=== PATIENT | female | born 1960 | race Caucasian/White ===

== ENCOUNTER 2017-09-11 15:04 | Emergency (ER) | payer OTHER ==
--- NOTE | 2017-09-11 15:29 | ED Physician Documentation ---
PD HPI CHEST PAIN - Stated complaint Stated Complaint: CP - Chief complaint Chief Complaint: Cardiac - History obtained from History obtained from: Patient - History of Present Illness Timing - onset: Yesterday (This is a 57-year-old woman with history of atrial fibrillation which has been controlled and she has not been in A. fib that we know of since September 2015 because she is maintained on Cardizem. For the last 2 weeks she has fleeting episodic feeling like her heart is burping it is a fleeting sensation and goes away after presyncope after about 10 or 15 seconds and then is left with a dull chest pressure. The last time she had that was yesterday but now the chest pressure is constant since yesterday radiating down the left arm with some breathlessness but no pedal edema, nausea, or sweats. She has no heart disease other than the history of atrial fibrillation.) Review of Systems Ten Systems: 10 systems reviewed and negative Constitutional: denies: Fever, Chills, Fatigue Cardiac: reports: Chest pain / pressure, Palpitations. denies: Pedal edema, Calf pain Respiratory: reports: Dyspnea. denies: Hemoptysis, Wheezing PD PAST MEDICAL HISTORY - Past Medical History Cardiovascular: Angina Respiratory: Asthma Endocrine/Autoimmune: None GI: None APPLICATIONS PROJECT MANAGER: None Psych: None Musculoskeletal: Osteoarthritis - Past Surgical History Past Surgical History: Yes /APPLICATIONS PROJECT MANAGER: Hysterectomy Cardiovascular: Cardiac catheterization - Present Medications Home Medications: Ambulatory Orders Medication Instructions Recorded Confirmed Multivitamin [Multivitamins] 1 each PO DAILY 09/28/14 10/10/15 Albuterol Sulfate [Ventolin Hfa] 2 puffs IH Q4HR PRN 10/10/15 10/10/15 Aspirin 2 tab PO BID 10/10/15 10/10/15 Cetirizine [ZyrTEC] 1 tab PO DAILY 10/10/15 10/10/15 Diltiazem HCl [Cardizem] 120 mg PO DAILY PRN 10/10/15 10/10/15 Biotin 09/11/17 - Allergies Allergies/Adverse Reactions: Allergies Allergy/AdvReac Type Severity Reaction Status Date / Time codeine Allergy Unknown Verified 10/10/15 03:27 theophylline Allergy Unknown Verified 09/11/17 15:16 - Social History Does the pt smoke?: No Smoking Status: Never smoker Does the pt drink ETOH?: Yes Does the pt have substance abuse?: No - Immunizations Immunizations are current?: Yes Immunizations: TDAP current <10years - POLST Patient has POLST: No PD ED PE NORMAL - Vitals Vital signs reviewed: Yes - General General: Alert and oriented X 3, No acute distress - HEENT HEENT: PERRL, EOMI - Neck Neck: Supple, no meningeal sign, No bony TTP - Cardiac Cardiac: RRR, No murmur - Respiratory Respiratory: No respiratory distress, Clear bilaterally - Abdomen Abdomen: Non tender - Extremities Extremities: No edema, No calf tenderness / cord - Neuro Neuro: Alert and oriented X 3, Normal speech Results - Vitals Vitals: Vital Signs - 24 hr 09/11/17 15:12 Temperature 36.7 C Heart Rate 88 Respiratory 20 Rate Blood Pressure 157/96 H O2 Saturation 98 Oxygen O2 Source Room air - EKG (time done) 1513 Rate: Rate (enter#) (85) Rhythm: NSR QRS: Low voltage (due to body habitus?) Ischemia: Normal ST segments Computer interpretation: Agree with computer - Labs Labs: Laboratory Tests 09/11/17 09/11/17 09/11/17 15:25 15:25 15:25 WBC 9.2 RBC 4.81 Hgb 14.2 Hct 43.1 MCV 89.7 MCH 29.4 MCHC 32.8 RDW 14.3 Plt Count 302 MPV 9.1 Neut # (Auto) Not Reportable Lymph # (Auto) Not Reportable [place] # (Auto) Not Reportable Eos # (Auto) Not Reportable Baso # (Auto) Not Reportable Absolute Nucleated RBC Not Reportable Total Counted 100 Band Neuts % (Manual) 0 Abnorm Lymph % (Manual) 0 Nucleated RBC % Not Reportable Neutrophils # (Manual) 5.0 Lymphocytes # (Manual) 2.4 Monocytes # (Manual) 0.7 Eosinophils # (Manual) 1.0 H Basophils # (Manual) 0.1 Differential Comment MANUAL DIFFERENTIAL Manual Slide Review Indicated WBC Morphology NORMAL APPEARANCE Platelet Estimate NORMAL (130-450,000) Platelet Morphology NORMAL APPEARANCE RBC Morph Micro Appear NORMAL APPEARANCE Sodium 136 Potassium 3.8 Chloride 101 Carbon Dioxide 28 Anion Gap 7.0 BUN 18 Creatinine 0.8 Estimated GFR (MDRD) 74 L Glucose 109 H Calcium 9.2 Total Bilirubin 0.7 AST 22 ALT 18 Alkaline Phosphatase 91 Troponin I < 0.04 Total Protein 7.7 Albumin 3.6 Globulin 4.1 Albumin/Globulin Ratio 0.9 L Lipase 34 - Rads (name of study) 2v chest Radiology: EMP read contemporaneously (Normal) PD MEDICAL DECISION MAKING - ED course ED course: 57-year-old woman with history of atrial fibrillation on Cardizem presents with new occasional palpitations associated with brief presyncope and now longer- lasting chest pressure that is dull. Her EKG is nonischemic and single troponin which should be predictive given the time course is negative. She plans to follow-up with her physician and they are scheduling her for a stress echo, which is appropriate. - Sepsis Event Vital Signs: Vital Signs - 24 hr 09/11/17 15:12 Temperature 36.7 C Heart Rate 88 Respiratory 20 Rate Blood Pressure 157/96 H O2 Saturation 98 Oxygen O2 Source Room air Departure - Departure Disposition: 01 Home, Self Care Clinical Impression: Chest pain Qualifiers: Chest pain type: unspecified Qualified Code(s): R07.9 - Chest pain, unspecified Condition: Good Record reviewed to determine appropriate education?: Yes Instructions: ED Chest Pain Atypical Unkn Cause Comments: Your blood pressure was elevated today on check into the emergency department. This does not mean that you have hypertension, it is a common phenomenon to come to the emergency department and have elevated blood pressure. I recommend that you see your primary care physician within the week to have it rechecked when you are feeling better.
[2017-09-11 15:49] LABS: BASOPHILS % (AUTO) 1.3 %; EOSINOPHILS % (AUTO) 14.8 %; HGB - HEMOGLOBIN 14.2 g/dL (12.0-16.0); LYMPHOCYTES % (AUTO) 25.7 %; MEAN CORPUSCULAR HEMOGLOBIN 29.4 pg (27.0-31.0); MEAN CORPUSCULAR HGB CONC 32.8 g/dL (32.0-36.0); MEAN CORPUSCULAR VOLUME 89.7 fL (81.0-99.0); MEAN PLATELET VOLUME 9.1 fL (7.9-10.8); MONOCYTES % (AUTO) 7.5 %; NEUTROPHILS % (AUTO) 50.7 %; PLT - PLATELET COUNT 302 10^3/uL (130-450); RED BLOOD COUNT 4.81 10^6/uL (4.20-5.40); RED CELL DISTRIBUTION WIDTH 14.3 % (12.0-15.0); WHITE BLOOD COUNT 9.2 x10^3/uL (4.8-10.8)
[2017-09-11 15:52] LABS: ABNORMAL LYMPHS % (MANUAL) 0 %; BAND NEUTROPHILS % (MANUAL) 0 %
[2017-09-11 15:55] LABS: ALBUMIN 3.6 g/dL (3.2-5.5); ALBUMIN/GLOBULIN RATIO 0.9 (1.0-2.2); BILIRUBIN,TOTAL 0.7 mg/dL (0.2-1.0); CALCIUM 9.2 mg/dL (8.5-10.3); CREATININE 0.8 mg/dL (0.4-1.0); TOTAL PROTEIN 7.7 g/dL (6.7-8.2)
[2017-09-11 16:07] LABS: BASOPHILS # (MANUAL) 0.1 10^3/uL (0-0.1); BASOPHILS % (MANUAL) 1 %; DIFFERENTIAL COMMENT MANUAL DIFFERENTIAL; LYMPHOCYTES # (MANUAL) 2.4 10^3/uL (1.5-3.5); LYMPHOCYTES % (MANUAL) 26 %; MONOCYTES # (MANUAL) 0.7 10^3/uL (0.0-1.0); NEUTROPHILS % (MANUAL) 54 %; PLATELET ESTIMATE, MANUAL NORMAL (130-450,000) (NORMAL); PLATELET MORPHOLOGY NORMAL APPEARANCE (NORMAL); RBC MORPHOLOGY (MULTIPLE) NORMAL APPEARANCE (NORMAL)
--- NOTE | 2017-09-11 16:09 | XRAY Report ---
Procedure Date: 09/11/2017 Accession Number: [id number] / [id number] Procedure: XR - Chest 2 View X-Ray CPT Code: 43356 FULL RESULT: EXAM: CHEST RADIOGRAPHY EXAM DATE: 09/11/2017 03:55 PM. CLINICAL HISTORY: Chest pain. COMPARISON: 08/04/2015. TECHNIQUE: 2 views. FINDINGS: Lungs/Pleura: No focal opacities evident. No pleural effusion. No pneumothorax. Normal volumes. Mediastinum: Heart and mediastinal contours are unremarkable. Other: None. IMPRESSION: No acute cardiopulmonary abnormality. RADIA
[2017-09-11 16:44] VITALS: BP 130/77
== END 2017-09-11 16:44 | disposition home or self-care (01) ==
LOC: ED 15:04
DX: R07.9 Chest pain, unspecified (principal); R03.0 Elevated blood-pressure reading, without diagnosis of hypertension; I48.91 Unspecified atrial fibrillation; J45.909 Unspecified asthma, uncomplicated; M19.90 Unspecified osteoarthritis, unspecified site
CPT/HCPCS: 36415; 71046; 80053; 83690; 84484; 85025; 93005; 99283; 99284

== ENCOUNTER 2018-08-10 17:06 | Outpatient (CLI) | payer OTHER ==
--- NOTE | 2018-08-11 12:11 | Ultrasound Report ---
Reason: HYDRONEPHROSIS,UNSPECIFIED Procedure Date: 08/10/2018 Accession Number: [id number] / [id number] Procedure: US - Retroperitoneal CPT Code: FULL RESULT: EXAM: RENAL ULTRASOUND EXAM DATE: 08/10/2018 05:54 PM. CLINICAL HISTORY: Hydronephrosis, unspecified. COMPARISON: ABDOMEN/PELVIS W/O 08/08/2014 1:16 PM. TECHNIQUE: Real-time scanning was performed with static images obtained. FINDINGS: Right Kidney: 13 x 5.6 x 5.4 cm. No stones, janet hydronephrosis or contour deforming mass. Moderate pelviectasis with the right renal pelvis measuring 0.8 cm. Left Kidney: 12.6 x 5.5 x 6.4 cm. No hydronephrosis or contour deforming renal mass. 0.8 cm echogenic inferior left renal nonobstructing stone. Mild left renal pelviectasis with the pelvis measuring 1.1 cm. Bladder: Bilateral jets seen. The prevoid bladder volume was 637.6 cc. The postvoid bladder volume was 4.3 cc. Other: Study limited by body habitus. IMPRESSION: 1. No renal mass or hydronephrosis. Mild bilateral pelviectasis measuring 0.8 cm on the right and 1.1 cm on the left. 2. 0.8 cm nonobstructing inferior left renal stone. No right renal stones. 3. Normal bladder. 4. Study limited by body habitus. RADIA
== END 2018-08-10 17:07 | disposition home or self-care (01) ==
LOC: DI 17:06
PROVIDERS: ATTEND Urology
DX: N20.0 Calculus of kidney (principal); N28.89 Other specified disorders of kidney and ureter
CPT/HCPCS: 76770

== ENCOUNTER 2018-11-21 09:28 | Outpatient (CLI) | payer OTHER ==
--- NOTE | 2018-11-22 08:40 | Ultrasound Report ---
Reason: URETERAL DILATATION Procedure Date: 11/21/2018 Accession Number: [id number] / [id number] Procedure: US - Retroperitoneal CPT Code: FULL RESULT: EXAM: RENAL ULTRASOUND EXAM DATE: 11/21/2018 10:29 AM. CLINICAL HISTORY: Ureteral dilatation. COMPARISON: RETROPERITONEAL 08/10/2018 5:19 PM. TECHNIQUE: Real-time scanning was performed with static images obtained. FINDINGS: Right Kidney: 12 5 x 7.3 x 5.3 cm. Normal cortical echotexture. Nonobstructing 8 mm stone lower pole. Mild pelvic caliectasis at 1.1 cm, similar to prior exam. Left Kidney: 12.7 x 7.1 x 4.8 cm. Normal cortical echotexture and contour. Mild pelvic caliectasis at 1 cm, unchanged from the prior exam. Bladder: Bilateral jets seen. The prevoid bladder volume was 260 cc. The postvoid bladder volume was 0 cc. Other: None. IMPRESSION: 1. Nonobstructing right lower pole nephrolithiasis 8 mm. 2. Stable mild pelvic caliectasis similar to prior. 3. Bilateral ureteral jets. No significant postvoiding residual. RADIA
== END 2018-11-21 09:29 | disposition home or self-care (01) ==
LOC: DI 09:28
PROVIDERS: ATTEND Urology
DX: N28.82 Megaloureter (principal); N20.0 Calculus of kidney; N28.89 Other specified disorders of kidney and ureter
CPT/HCPCS: 76770

== ENCOUNTER 2018-12-22 10:57 | Outpatient (CLI) | payer OTHER ==
[2018-12-22] MEDS ORDERED: IOVERSOL 320 100 ML VIAL IVP ONE ×2 (11:14→12:02)
[2018-12-22 11:39] LABS: CALCIUM 9.3 mg/dL (8.5-10.3); CREATININE 0.8 mg/dL (0.4-1.0)
--- NOTE | 2018-12-22 15:37 | CT Report ---
Reason: URETERAL DILATATION Procedure Date: 12/22/2018 Accession Number: [id number] / [id number] Procedure: CT - IVP CPT Code: Final Report FULL RESULT: EXAM: CT ABDOMEN AND PELVIS WITHOUT AND WITH CONTRAST (CT IVP) EXAM DATE: 12/22/2018 12:25 PM. CLINICAL HISTORY: Ureteral dilatation. COMPARISONS: ABDOMEN/PELVIS W/O 08/08/2014 1:16 PM RETROPERITONEAL 11/21/2018 9:27 AM. TECHNIQUE: Routine helical imaging was performed through the kidneys, ureters and bladder in the precontrast, postcontrast and delayed phase. IV Contrast: OPTI 320 100ML. Reconstructions: Coronal and sagittal. Dedicated coronal thick slab MIP images for better visualization of the ureter was specifically performed for this examination. In accordance with CT protocol optimization, one or more of the following dose reduction techniques were utilized for this exam: automated exposure control, adjustment of mA and/or KV based on patient size, or use of iterative reconstructive technique. Please note that images are somewhat suboptimal due to a combination of body habitus, suboptimal injection and volume of distribution. Limitations in evaluation of the ureter are described below. FINDINGS: Lung Bases: Unremarkable. Liver: Normal. No masses. Gallbladder/Bile Ducts: Unremarkable. Spleen: Normal. Pancreas: Normal. Adrenal Glands: Normal. Kidneys/Bladder: Both ureters are adequately visualized from their renal collecting system to the level of the pelvic inlet. The distal ureters are not adequately opacified. Right Kidney/Ureter: No renal or ureteral stones. No hydronephrosis or hydroureter. There is a upper pole 1.2 cm hypodensity, which is not characterized on this examination and not characterized on previous ultrasound examination. Left Kidney/Ureter: No renal or ureteral stones. No hydronephrosis or hydroureter. No masses. Bladder: Somewhat limited visualization within the pelvis due to streak artifact, limitation of technique and body habitus. No stones. No wall thickening or mass. Peritoneal Cavity/Bowel: No bowel obstruction. No free fluid or free air. No Lymphadenopathy by size criteria. Evaluation for fat stranding in the lower abdomen and pelvis is limited by streak artifact. Pelvic Organs: Visualized pelvic organs are unremarkable. Vasculature: No aneurysms or other significant abnormality. Bones: No significant abnormality. Other: None. IMPRESSION: Somewhat limited visualization of distal ureters. No evidence of urothelial mass in the collecting systems or bilateral proximal to mid ureters. No hydronephrosis. Uncharacterized right upper pole hypodense renal lesion, up to 1.2 cm. RECOMMENDATION: This finding could be definitively characterized by multiphase CT examination or, given size, is amenable to follow-up by contrast-enhanced CT or retroperitoneal ultrasound as it is retrospectively identifiable sonographically. Please note that noncontrast examination would likely fail to demonstrate the finding adequately. This is not felt to represent a simple cyst based on available imaging. RADIA
== END 2018-12-22 10:58 | disposition home or self-care (01) ==
LOC: DI 10:57
PROVIDERS: ATTEND Urology
DX: N20.0 Calculus of kidney (principal); N28.82 Megaloureter
CPT/HCPCS: 36415; 74178; 80048; Q9967

== ENCOUNTER 2019-07-13 20:22 | Emergency (ER) | payer OTHER ==
[2019-07-13] MEDS ORDERED: SUMAtriptan 6 MG/0.5 ML VIAL SUBQ STA (20:48)
--- NOTE | 2019-07-13 20:50 | ED Physician Documentation ---
PD HPI FOCAL NEURO - Stated complaint Stated Complaint: DIZZY/LOW HEART RATE - Chief complaint Chief Complaint: Neuro - History obtained from History obtained from: Patient (58-year-old woman with history of migraines had a dizzy episode back in January associated with some word finding difficulties. Sounds like she had a fairly thorough work-up, but eventually had an MRI that showed "extra intracranial fluid," she does not know the details. She has a pending follow-up with a neurologist. Starting 2 days ago she had the same type of dizziness started again, she feels like she is on a boat even when she is just sitting. There is a headache and some scotomata associated with it. No weakness, numbness, tingling in the extremities.) Review of Systems Ten Systems: 10 systems reviewed and negative Constitutional: reports: Reviewed and negative Eyes: reports: Photophobia (mild). 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: Hysterectomy Cardiovascular: Cardiac catheterization - Present Medications Home Medications: Ambulatory Orders Medication Instructions Recorded Confirmed Multivitamin [Multivitamins] 1 each PO DAILY 09/28/14 10/10/15 Albuterol Sulfate [Ventolin Hfa] 2 puffs IH Q4HR PRN 10/10/15 10/10/15 Aspirin 2 tab PO BID 10/10/15 10/10/15 Cetirizine [ZyrTEC] 1 tab PO DAILY 10/10/15 10/10/15 Diltiazem HCl [Cardizem] 120 mg PO DAILY PRN 10/10/15 10/10/15 Biotin 09/11/17 - Allergies Allergies/Adverse Reactions: Allergies Allergy/AdvReac Type Severity Reaction Status Date / Time codeine Allergy Unknown Verified 07/13/19 20:35 theophylline Allergy Unknown Verified 07/13/19 20:35 - Social History Does the pt smoke?: No Smoking Status: Never smoker Does the pt drink ETOH?: Yes Does the pt have substance abuse?: No - Immunizations Immunizations are current?: Yes Immunizations: TDAP current <10years - POLST Patient has POLST: No PD ED PE NORMAL - Vitals Vital signs reviewed: Yes - General General: Alert and oriented X 3, No acute distress - HEENT HEENT: PERRL, EOMI - Neck Neck: Supple, no meningeal sign, No bony TTP - Cardiac Cardiac: RRR, No murmur - Respiratory Respiratory: No respiratory distress, Clear bilaterally - Abdomen Abdomen: Non tender - Neuro Neuro: Alert and oriented X 3, shallot cleaner 2-12 intact, No motor deficit, No sensory deficit, Normal speech NIHSS - Time Time: 20:45 - Level of Consciousness Level of consciousness: (0) Alert, Keenly responsive LOC Questions: (0) Answers both Q's correct LOC Commands: (0) Performs both correctly - Gaze Best Gaze: (0) Normal - Visual Visual: (0) No loss - Facial Palsy Facial Palsy: (0) Normal, symmetrical movement - Motor Arms (both separate) Motor Arm (right): (0) No drift Motor Arm (left): (0) No drift - Motor Legs (both separate) Motor Leg (right): (0) No drift Motor Leg (left): (0) No drift - Limb Ataxia Limb Ataxia: (0) Absent - Sensory Sensory: (0) Normal - Best Language Best Language: (0) No aphasia - Dysarthria Dysarthria: (0) Normal - Extinction and Inattention (formally neg Extinction and inattention: (0) No abnormality - Total Score/Results Total Score/Result: 0 Results - Vitals Vitals: Vital Signs - 24 hr 07/13/19 07/14/19 07/14/19 20:25 00:02 02:00 Temperature 36.0 C L Heart Rate 79 74 72 Respiratory 18 22 19 Rate Blood Pressure 151/78 H 155/85 H 141/77 H O2 Saturation 97 97 96 07/14/19 04:00 Temperature Heart Rate 64 Respiratory 23 Rate Blood Pressure O2 Saturation Oxygen O2 Source Room air - EKG (time done) 2031 Rate: Rate (enter#) (67) Rhythm: NSR QRS: LVH Ischemia: Non specific changes (LVH with abnormal R wave progression, no change from last EKG on the chart dated September 11, 2017) - Labs Labs: Laboratory Tests 07/13/19 07/13/19 20:53 20:53 WBC 9.1 RBC 4.86 Hgb 14.4 Hct 44.9 MCV 92.4 MCH 29.6 MCHC 32.1 RDW 13.7 Plt Count 332 MPV 10.3 Neut # (Auto) 5.1 Lymph # (Auto) 2.1 [place] # (Auto) 0.9 Eos # (Auto) 0.9 H Baso # (Auto) 0.1 Absolute Nucleated RBC 0.00 Nucleated RBC % 0.0 Sodium 139 Potassium 4.0 Chloride 101 Carbon Dioxide 31 Anion Gap 7.0 BUN 19 Creatinine 0.9 Estimated GFR (MDRD) 65 L Glucose 103 H Calcium 9.2 Total Bilirubin 0.4 AST 19 ALT 18 Alkaline Phosphatase 92 Total Protein 7.5 Albumin 3.8 Globulin 3.7 Albumin/Globulin Ratio 1.0 Lipase 37 PD MEDICAL DECISION MAKING - ED course ED course: 58-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 In January when she had this it was followed by slurred speech and she had work-up at that time. We were able to obtain a copy of the MRI done then which showed slightly dilated optic nerve sheath diameter and an empty sella consistent with intracranial hypertension. She has a pending referral to neurology but has not been scheduled yet. Now the syndrome is recurrent. Consideration for migrainous etiology, but no relief with Imitrex although this certainly does not rule that out. Discussed options with patient and she would like to be admitted for further evaluation and treatment and a call to [facility] was placed around 11 PM for potential transfer to a facility with neurology capability. We discussed and I offered, CT imaging tonight, she wanted to avoid this cost/radiation and wante dot see neuro/consider repeat MRI. Spoke with Dr. Murphy at [facility] who will look for an accepting facility for us and call back, that call was around 11:30 PM. Departure - Departure Disposition: 02 Transfer Acute Care Hosp Clinical Impression: Dysequilibrium Condition: Stable Discharge Date/Time: 07/14/19 04:17
[2019-07-13 21:03] LABS: BASOPHILS # (AUTO) 0.1 10^3/uL (0.0-0.1); BASOPHILS % (AUTO) 1.1 %; EOSINOPHILS # (AUTO) 0.9 10^3/uL (0.0-0.7); EOSINOPHILS % (AUTO) 9.5 %; HGB - HEMOGLOBIN 14.4 g/dL (12.0-16.0); LYMPHOCYTES # (AUTO) 2.1 10^3/uL (1.5-3.5); LYMPHOCYTES % (AUTO) 23.6 %; MEAN CORPUSCULAR HEMOGLOBIN 29.6 pg (27.0-31.0); MEAN CORPUSCULAR HGB CONC 32.1 g/dL (32.0-36.0); MEAN CORPUSCULAR VOLUME 92.4 fL (81.0-99.0); MEAN PLATELET VOLUME 10.3 fL (7.9-10.8); MONOCYTES # (AUTO) 0.9 10^3/uL (0.0-1.0); MONOCYTES % (AUTO) 9.6 %; NEUTROPHILS # (AUTO) 5.1 10^3/uL (1.5-6.6); NEUTROPHILS % (AUTO) 55.9 %; PLT - PLATELET COUNT 332 10^3/uL (130-450); RED BLOOD COUNT 4.86 10^6/uL (4.20-5.40); RED CELL DISTRIBUTION WIDTH 13.7 % (12.0-15.0); WHITE BLOOD COUNT 9.1 x10^3/uL (4.8-10.8)
[2019-07-13 21:12] LABS: ALBUMIN 3.8 g/dL (3.2-5.5); BILIRUBIN,TOTAL 0.4 mg/dL (0.2-1.0); CALCIUM 9.2 mg/dL (8.5-10.3); CREATININE 0.9 mg/dL (0.4-1.0); TOTAL PROTEIN 7.5 g/dL (6.7-8.2)
[2019-07-14 02:34] VITALS: BP 141/77
== END 2019-07-14 04:17 | disposition short-term general hospital (02) ==
LOC: ED 20:22
DX: R42 Dizziness and giddiness (principal); R51 Headache; I51.7 Cardiomegaly; Z79.82 Long term (current) use of aspirin
CPT/HCPCS: 36415; 80053; 83690; 85025; 93005; 96372; 99284; 99285

== ENCOUNTER 2019-07-27 08:36 | Outpatient (CLI) | payer OTHER ==
[2019-07-27] MEDS ORDERED: IOVERSOL 320 100 ML VIAL IVP ONE ×2 (08:52→09:18)
--- NOTE | 2019-07-27 14:43 | CT Report ---
Reason: RIGHT KIDNEY MASS Procedure Date: 07/27/2019 Accession Number: [id number] / [id number] Procedure: CT - ABDOMEN W/WO CPT Code: Final Report FULL RESULT: PROCEDURE: ABDOMEN W/WO INDICATIONS: RIGHT KIDNEY MASS TECHNIQUE: COMPARISON: None. FINDINGS: IMPRESSION: PROCEDURE: ABDOMEN W/WO INDICATIONS: RIGHT KIDNEY MASS CONTRAST: IV CONTRAST: Optiray 320 ml: 140 PO CONTRAST: *NO PO CONTRAST TECHNIQUE: After the administration of intravenous contrast, 5 mm thick sections acquired from the diaphragm to the iliac crest. 5 mm coronal and sagittal reformats were acquired. For radiation dose reduction, the following was used: automated exposure control, adjustment of mA and/or kV according to patient size. COMPARISON: Prior CT IVP. FINDINGS: Image quality: Excellent. Lung bases: Lung bases are clear. Heart size is normal. Genitourinary: No renal cortical mass or evidence of urothelial mass lesion is seen. Solid organs: Liver and spleen are normal in size and enhancement. Gallbladder the gallbladder appears normal Biliary system is non dilated. Pancreas enhances normally. No adrenal nodules. Peritoneum and bowel: Unenhanced bowel loops are normal in caliber and wall thickness. No free fluid or air. Nodes and vessels: No retroperitoneal or mesenteric adenopathy by size criteria. Aorta and inferior vena cava are normal in caliber. Bones: No suspicious bony lesions. No vertebral body compression fractures. Miscellaneous: No ventral hernias. No lesion seen within the small portion of the visualized upper pelvis. IMPRESSION: No renal cortical mass lesion is found, no sign of underlying urothelial neoplasm. Currently there is no visualized evidence of hydronephrosis or nephrolithiasis. Normal examination through the abdomen and a small portion of the upper pelvis. Reviewed by: Tyree Fisher MD on 07/27/2019 2:42 PM PDT Approved by: Tyree Fisher MD on 07/27/2019 2:42 PM PDT Station ID: [id number]
[2019-07-27] MEDS: IOVERSOL 320 100 ML VIAL IVP ONE (16:33)
== END 2019-07-27 08:37 | disposition home or self-care (01) ==
LOC: DI 08:36
PROVIDERS: ATTEND Internal Medicine
DX: N28.89 Other specified disorders of kidney and ureter (principal)
CPT/HCPCS: 74170; Q9967

== ENCOUNTER 2021-03-15 05:19 | Outpatient (CLI) | payer BC | END 2021-03-15 05:20 | disposition critical access hospital (66) | LOC: EMS 05:19 | DX: I48.91 Unspecified atrial fibrillation (principal); R06.02 Shortness of breath | CPT/HCPCS: A0425; A0429 ==

== ENCOUNTER 2021-03-15 05:32 | Emergency (ER) | payer BC, OTHER ==
[2021-03-15 05:54] LABS: BASOPHILS # (AUTO) 0.1 10^3/uL (0.0-0.1); EOSINOPHILS # (AUTO) 0.5 10^3/uL (0.0-0.7); EOSINOPHILS % (AUTO) 5.5 %; HCT - HEMATOCRIT 47.1 % (37.0-47.0); HGB - HEMOGLOBIN 15.5 g/dL (12.0-16.0); LYMPHOCYTES # (AUTO) 2.3 10^3/uL (1.5-3.5); LYMPHOCYTES % (AUTO) 25.7 %; MEAN CORPUSCULAR HEMOGLOBIN 29.3 pg (27.0-31.0); MEAN CORPUSCULAR HGB CONC 32.9 g/dL (32.0-36.0); MEAN PLATELET VOLUME 10.2 fL (7.9-10.8); MONOCYTES # (AUTO) 0.8 10^3/uL (0.0-1.0); MONOCYTES % (AUTO) 8.9 %; NEUTROPHILS # (AUTO) 5.2 10^3/uL (1.5-6.6); NEUTROPHILS % (AUTO) 58.8 %; PLT - PLATELET COUNT 347 10^3/uL (130-450); RED BLOOD COUNT 5.29 10^6/uL (4.20-5.40); RED CELL DISTRIBUTION WIDTH 14.5 % (12.0-15.0); WHITE BLOOD COUNT 8.8 x10^3/uL (4.8-10.8)
[2021-03-15] MEDS: diltiaZEM INJ 5 MG/ML VIAL IVP STA (05:58)
[2021-03-15] MEDS: SODIUM CHLORIDE 0.9% 1,000 ML IV STA (05:59)
[2021-03-15 06:23] LABS: ALBUMIN 3.8 g/dL (3.2-5.5); ALBUMIN/GLOBULIN RATIO 0.9 (1.0-2.2); BILIRUBIN,TOTAL 0.3 mg/dL (0.2-1.0); CALCIUM 10.1 mg/dL (8.5-10.3); CREATININE 0.7 mg/dL (0.4-1.0); POTASSIUM 3.9 mmol/L (3.5-5.0); TOTAL PROTEIN 7.9 g/dL (6.7-8.2)
[2021-03-15] MEDS: FLECAINIDE 50 MG TABLET PO STA (06:40)
--- NOTE | 2021-03-15 07:24 | ED Physician Documentation ---
History of Present Illness - Stated complaint Stated Complaint: CP, SOA, A-FIB - Chief complaint Chief Complaint: Cardiac - History obtained from History obtained from: Patient - Additonal information Additional information: The patient comes to the emergency department chief complaint of "I am in A. fib again". Patient states that she woke up with it this morning after going to bed feeling normal last night. She has a history of paroxysmal A. fib for which she takes flecainide, and has never required electrical cardioversion. The patient is also on Cardizem, and states that when she has gotten Cardizem in the past through the IV in the emergency department, it is resulted in spontaneous cardioversion. Patient denies any chest pain or lightheadedness, but does feel short of breath. No edema in her lower extremities. She has been feeling fine otherwise. No other complaints at this time. Review of Systems Ten Systems: 10 systems reviewed and negative Constitutional: reports: Reviewed and negative Eyes: reports: Reviewed and negative Ears: reports: Reviewed and negative Nose: reports: Reviewed and negative Throat: reports: Reviewed and negative Cardiac: reports: Palpitations Respiratory: reports: Dyspnea GI: reports: Reviewed and negative : reports: Reviewed and negative Skin: reports: Reviewed and negative Musculoskeletal: reports: Reviewed and negative Neurologic: reports: Reviewed and negative Psychiatric: reports: Reviewed and negative Endocrine: reports: Reviewed and negative Immunocompromised: reports: Reviewed and negative PD PAST MEDICAL HISTORY - Past Medical History Cardiovascular: Angina Respiratory: Asthma Neuro: Migraines Endocrine/Autoimmune: None GI: None 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 CARE EDUCATION COORDINATOR: None : Kidney stones HEENT: Dental implants Psych: None Musculoskeletal: Osteoarthritis Derm: None - Past Surgical History Past Surgical History: Yes /CHILD CARE EDUCATION COORDINATOR: Hysterectomy Cardiovascular: Cardiac catheterization HEENT: Myringotomy (tubes) - Present Medications Home Medications: Ambulatory Orders Medication Instructions Recorded Confirmed Multivitamin [Multivitamins] 1 each PO DAILY 09/28/14 10/10/15 Albuterol Sulfate [Ventolin Hfa] 2 puffs IH Q4HR PRN 10/10/15 10/10/15 Aspirin 2 tab PO BID 10/10/15 10/10/15 Cetirizine [ZyrTEC] 1 tab PO DAILY 10/10/15 10/10/15 Diltiazem HCl [Cardizem] 120 mg PO DAILY PRN 10/10/15 10/10/15 Biotin 09/11/17 - Allergies Allergies/Adverse Reactions: Allergies Allergy/AdvReac Type Severity Reaction Status Date / Time codeine Allergy Unknown Verified 03/15/21 05:50 theophylline Allergy Unknown Verified 03/15/21 05:50 - Social History Does the pt smoke?: No Smoking Status: Never smoker Does the pt drink ETOH?: Yes Does the pt have substance abuse?: No - Immunizations Immunizations are current?: Yes Immunizations: TDAP current <10years - POLST Patient has POLST: No PD ED PE NORMAL - Vitals Vital signs reviewed: Yes - General General: Alert and oriented X 3, No acute distress, Well developed/nourished - HEENT HEENT: Atraumatic, PERRL, EOMI, Moist mucous membranes - Neck Neck: Supple, no meningeal sign - Cardiac Cardiac: No murmur, Strong equal pulses, Other (Irregular rate and rhythm, tachycardic) - Respiratory Respiratory: No respiratory distress, Clear bilaterally - Abdomen Abdomen: Soft, Non tender, Non distended - Derm Derm: Normal color, Warm and dry, No rash - Extremities Extremities: No deformity, No edema, No calf tenderness / cord - Neuro Neuro: Alert and oriented X 3, 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, Normal speech - Psych Psych: Normal mood, Normal affect Results - Vitals Vitals: Oxygen O2 Source Room air - EKG (time done) 0538 Rate: Rate (enter#) (127) Rhythm: Atrial flutter [place]: Normal Intervals: Normal [place] QRS: LVH Ischemia: Normal ST segments Compare to prior EKG: Old EKG unavailable Computer interpretation: Agree with computer - Labs Labs: Laboratory Tests 03/15/21 03/15/21 03/15/21 05:48 05:48 05:48 WBC 8.8 RBC 5.29 Hgb 15.5 Hct 47.1 H MCV 89.0 MCH 29.3 MCHC 32.9 RDW 14.5 Plt Count 347 MPV 10.2 Neut # (Auto) 5.2 Lymph # (Auto) 2.3 [place] # (Auto) 0.8 Eos # (Auto) 0.5 Baso # (Auto) 0.1 Absolute Nucleated RBC 0.00 Nucleated RBC % 0.0 Sodium 139 Potassium 3.9 Chloride 103 Carbon Dioxide 24 Anion Gap 12.0 BUN 17 Creatinine 0.7 Estimated GFR (MDRD) 86 L Glucose 121 H Calcium 10.1 Total Bilirubin 0.3 AST 23 ALT 19 Alkaline Phosphatase 92 Troponin I High Sens 5.2 B-Natriuretic Peptide Total Protein 7.9 Albumin 3.8 Globulin 4.1 Albumin/Globulin Ratio 0.9 L Lipase 39 03/15/21 05:48 WBC RBC Hgb Hct MCV MCH MCHC RDW Plt Count MPV Neut # (Auto) Lymph # (Auto) [place] # (Auto) Eos # (Auto) Baso # (Auto) Absolute Nucleated RBC Nucleated RBC % Sodium Potassium Chloride Carbon Dioxide Anion Gap BUN Creatinine Estimated GFR (MDRD) Glucose Calcium Total Bilirubin AST ALT Alkaline Phosphatase Troponin I High Sens B-Natriuretic Peptide 96 Total Protein Albumin Globulin Albumin/Globulin Ratio Lipase PD MEDICAL DECISION MAKING - ED course Complexity details: reviewed results, re-evaluated patient, considered differential, d/w patient ED course: The patient was in atrial flutter with rapid ventricular response in the emergency department, but was stable and well-appearing. She was given 25 mg of Cardizem IV, which immediately slowed her rate and patient improved and sense of dyspnea. She was worked up with laboratory studies, which were unremarkable, and during that time, she spontaneously converted back to normal sinus rhythm. On reevaluation, the patient was feeling much better and I felt she was stable for discharge home. We have discussed the need for follow-up and the usual indications for return. Departure - Departure Disposition: 01 Home, Self Care Clinical Impression: Paroxysmal atrial fibrillation with RVR Condition: Stable Instructions: ED Paroxysmal Atrial Flutter Comments: Your labs look great. Your rhythm has converted to a normal sinus rhythm from atrial flutter with IV Cardizem. Please follow-up with your spinner open end for further evaluation. Discharge Date/Time: 03/15/21 07:35
[2021-03-15 08:16] VITALS: BP 128/101
--- NOTE | 2021-03-15 08:33 | XRAY Report ---
PROCEDURE: Chest 1 View X-Ray INDICATIONS: Chest pain TECHNIQUE: One view of the chest was acquired. COMPARISON: 09/11/2017 chest radiographs FINDINGS: Surgical changes and devices: None. Lungs and pleura: No pleural effusions or pneumothorax. Lungs are clear. Mediastinum: Mediastinal contours appear normal. Heart size is normal. Bones and chest wall: No suspicious bony lesions. Overlying soft tissues appear unremarkable. IMPRESSION: No acute cardiopulmonary process demonstrated radiographically. Reviewed by: Deejay Londono MD on 03/15/2021 8:31 AM [facility] Approved by: Deejay Londono MD on 03/15/2021 8:31 AM [facility] Station ID: [id number]
== END 2021-03-15 07:35 | disposition home or self-care (01) ==
LOC: EDUNIT# → ED 05:32
DX: I48.0 Paroxysmal atrial fibrillation (principal); Z79.01 Long term (current) use of anticoagulants
CPT/HCPCS: 36415; 71045; 80053; 83690; 83880; 84484; 85025; 93005; 96361; 96374; 99283; 99284; A9270

== ENCOUNTER 2021-06-22 10:51 | Outpatient (CLI) | payer BC ==
--- NOTE | 2021-06-22 12:18 | CT Report ---
PROCEDURE: Abdomen/Pelvis WO INDICATIONS: LEFT FLANK PAIN, NEPHROITHIASIS TECHNIQUE: Noncontrast 5 mm thick sections acquired from the diaphragms to the symphysis. 5 mm coronal and sagi ttal reformats were then performed. For radiation dose reduction, the following was used: automated exposure control, adjustment of mA and/or kV according to patient size. COMPARISON: CT abdomen with and without contrast, 07/27/2019. CT IVP, 12/23/2019. CT abdomen pelvis wi thout contrast, 08/08/2014 FINDINGS: Image quality: Excellent. ABDOMEN: Lung bases: Groundglass density in the right lower lobe.. Heart size is normal. Small hiatal hernia . Solid organs: Liver and spleen are normal in size. Mild hepatic steatosis. Gallbladder is normal. Pancreas is normal in contours. No adrenal nodules. There is a 1 mm nonobstructive stone in the left renal pelvis. Kidneys are normal in size, without hy dronephrosis or nephrolithiasis. Peritoneum and bowel: Unenhanced bowel loops demonstrate normal wall thickness and caliber. Diverti culosis. No acute diverticulitis. Normal appendix. No free fluid or air. Nodes and vessels: No retroperitoneal or mesenteric adenopathy by size criteria. Aorta and inferior vena cava are normal in caliber. Miscellaneous: No ventral hernias. PELVIS: Genitourinary: Bladder contracted. No bladder stones. There is a diffuse density in the left pelvis posterior to bladder, most likely a phlebolith. Uterus is absent. Ovaries are not visualized. No adn exal mass or pathological free fluid in pelvis. Miscellaneous: No inguinal hernias or adenopathy. Bones: No suspicious bony lesions. No vertebral body compression fractures. Degenerative disc dise ase and moderate facet arthropathy in lumbar spine. IMPRESSION: 1. A 1 mm nonobstructive stone in left kidney. No hydronephrosis. 2. Diverticulosis without diverticulitis. 3. Mild degenerative disc disease and moderate facet arthropathy in lumbar spine. Reviewed by: Munir Santamaria MD on 06/22/2021 11:17 AM [facility] Approved by: Munir Santamaria MD on 06/22/2021 11:17 AM [facility] Station ID: [id number]
== END 2021-06-22 10:52 | disposition home or self-care (01) ==
LOC: DI 10:51
PROVIDERS: ATTEND Internal Medicine Nephrology
DX: N20.0 Calculus of kidney (principal); K57.30 Diverticulosis of large intestine without perforation or abscess without bleeding; M51.36 Other intervertebral disc degeneration, lumbar region; M47.816 Spondylosis without myelopathy or radiculopathy, lumbar region